=== PATIENT | male | born 1995 | race Caucasian/White ===

== ENCOUNTER 2018-11-24 22:37 | Emergency (ER) | payer BC ==
[2018-11-25] MEDS: LIDOCAINE 2%/EPI MPF (SDV) 20 ML VIAL INJ (00:22)
== END 2018-11-25 01:28 | disposition home or self-care (01) ==
LOC: FTE 22:37
DX: L02.411 Cutaneous abscess of right axilla (principal)
CPT/HCPCS: 10060; 99282-25